=== PATIENT | male | born 1970 | race Caucasian/White ===

== ENCOUNTER 2017-03-14 12:05 | Day surgery (SDC) | payer MEDICAID ==
[~2017-03-14 12:05] MED LIST: FLUMAZENIL 0.5 MG/5 ML MDV IVP PRN; MEPERIDINE 25 MG/ML SYR IVP PRN; MIDAZOLAM 2 MG/2 ML VIAL IVP PRN; NALOXONE HCL 0.4 MG/ML INJ IVP PRN; NS 1,000 ML IV SCH; fentaNYL 100 MCG/2 ML INJ IVP PRN
[2017-03-14] MEDS ORDERED: MIDAZOLAM 2 MG/2 ML VIAL ONE (12:53)
[2017-03-14] MEDS ORDERED: fentaNYL 100 MCG/2 ML INJ ONE (12:53)
[2017-03-14] MEDS ORDERED: NALOXONE HCL 0.4 MG/ML INJ ONE (12:53)
[2017-03-14] MEDS ORDERED: FLUMAZENIL 0.5 MG/5 ML MDV IVP ONE (12:53)
[2017-03-14 13:02] VITALS: PULSE 61
--- NOTE | 2017-03-14 13:45 | PDGENHP ---
History & Physical Chief Complaint: MID LOWER BACK PAIN AND L>R BUTTOCK PAIN History of Present Illness: 10/02. HAD PREVIOUIS SI JOINT INJECTION, NO RELIEF. Pertinent Past, Social, Family History: N/A Relevant Physical Exam: N/A Cardiorespiratory Assessment: RRR,CTA
--- NOTE | 2017-03-14 13:46 | PDPROPOC ---
Sedation Plan of Care Sedation Plan of Care: vital signs stable, mental status noted, patient educated of risks, benefits, alternatives, patient can tolerate sedation ASA Classification: ASA 1 Planned drugs: fentanyl, midazolam Mallampati Score: Class 1 Mallampati Reference Image: Patient passed 3-3-2 rule?: Yes
[2017-03-14] MEDS ORDERED: LIDOCAINE 1% 300 MG/30 ML SDV ONE (14:20)
[2017-03-14] MEDS ORDERED: DEPO METHYLPREDNISOLONE 80 MG/ML SDV ONE (14:20)
[2017-03-14] MEDS ORDERED: IOPAMIDOL (ISOVUE-M 300) 15 ML VIAL ONE (14:20)
--- NOTE | 2017-03-14 14:38 | PDRADPN ---
Radiology Procedure Note Date of Procedure: 03/14/17 Radiologist: Maren Fulton Anesthesia: IV Sedation (FENTANYL AND VERSED) Pre-op Diagnosis: LBP Post-op Diagnosis: SAME Indication: RECURRENT BACK PAIN Procedure: LT L4-5 AND L5-S1 FACET INJECTION Finding(s): SEE REPORT Inf/Abcess present in the surg proc area at time of surgery?: No EBL: Minimal Complications: NONE
[2017-03-14 15:50] VITALS: BP 130/84; RESP 18; TEMP 97.5; O2SAT 98
== END 2017-03-14 15:52 | disposition home or self-care (01) ==
LOC: FIMAGING 12:05
PROVIDERS: ATTEND Neurological Surgery
PROC: 3E0R3BZ Introduction of Anesthetic Agent into Spinal Canal, Percutaneous Approach (ICD-10-PCS; principal; 2017-03-14 14:31)
PROC: 3E0R33Z Introduction of Anti-inflammatory into Spinal Canal, Percutaneous Approach (ICD-10-PCS; principal; 2017-03-14 14:31)
DX: M47.816 Spondylosis without myelopathy or radiculopathy, lumbar region (principal)
CPT/HCPCS: J1040; J2250; J2310; J3010; Q9967